=== PATIENT | female | born 1980 | race Caucasian/White ===

== ENCOUNTER 2022-11-19 16:39 | Emergency (ER) | payer MEDICAID, OTHER ==
[~2022-11-19] VITALS: Ht 160 cm; Wt 92.0 kg
[2022-11-19 18:01] LABS: Urine Bacteria NONE SEEN /hpf (None Seen); Urine Blood 1+ /uL (Negative); Urine Specific Gravity 1.016 (1.001-1.035); Urine WBC 6 /hpf (0 - 5)
[2022-11-19 18:49] VITALS: BP 120/51
[2022-11-19] MEDS ORDERED: IBUP800T27 PO (20:37)
[2022-11-19] MEDS ORDERED: SULF800T7 PO (20:37)
[2022-11-19] MEDS ORDERED: KETOROLAC TROMETH 60MG/2ML VIAL IM ONE (21:15)
== END 2022-11-19 21:15 | disposition home or self-care (01) ==
LOC: ER 16:39
DX: G44.209 Tension-type headache, unspecified, not intractable (principal); N39.0 Urinary tract infection, site not specified; F41.9 Anxiety disorder, unspecified
CPT/HCPCS: 70450; 81001